=== PATIENT | male | born 1960 | race Two or more races ===

== ENCOUNTER 2018-11-23 08:52 | Inpatient (IN) | payer MEDICAID ==
[~2018-11-23] VITALS: Ht 170.2 cm; Wt 65.4 kg
[2018-11-23 09:04] VITALS: Ht 170.2 cm; Wt 65.4 kg
--- NOTE | 2018-11-23 09:47 | NUR ---
PT C/O ACHING CHEST PAIN WITH TINGLING TO BLE SINCE 729 THIS AM PT HX DM PT DENIES LOC AND/OR DIZZINESS PT DENIES N/V AT THIS TIME PT AAOX4 RESPS E/U LUNGS CTA SKIN PINK DRY AND WARM PT PLACED ON FULL CM NSR PT C/O PAIN 12/06 FRIEND AT BEDSIDE
[2018-11-23 09:51] LABS: BASOPHIL % 0.4 % (0-2); PLATELET COUNT 162 x10^3mcL (130-400); RED CELL DISTRIBUTION WIDTH 13.2 % (11.5-14.5)
[2018-11-23 10:00] LABS: CALCIUM 9.2 mg/dL (8.5-10.1); CARBON DIOXIDE 28.6 mmol/L (21-32); CHLORIDE SERUM 102 mmol/L (98-107); CREATININE SERUM 0.9 mg/dL (0.7-1.3); GFR1 > 60 mL/min; GLUCOSE SERUM 190 mg/dL (74-106); POTASSIUM SERUM 3.8 mmol/L (3.5-5.1); SODIUM SERUM 139 mmol/L (136-145)
--- NOTE | 2018-11-23 10:03 | NUR ---
PT IN POSITION OF COMFORT RESPS E/U FRIEND AT BEDSIDE WILL CONTINUE TO MONITOR
--- NOTE | 2018-11-23 10:08 | NUR ---
MD PENNY MADE AWARE OF PT SBP. PT MEDICATED PER MD ORDER
[2018-11-23 10:09] LABS: ALKALINE PHOSPHATASE 67 U/L (46-116); ALT/SGPT 25 U/L (16-63); AST/SGOT 19 U/L (15-37); CHOLESTEROL 167 mg/dL (<200); HDL CHOLESTEROL 55 mg/dL (40-60); LIPASE 338 IU/L (73-393); TRIGLYCERIDES 61 mg/dL (<150)
[2018-11-23 10:09] LABS: UA SPECIFIC GRAVITY <=1.005 (1.005-1.035); microscopic required? YES; urine erythrocyte TRACE (NEGATIVE)
[2018-11-23 10:16] LABS: FREE T4 1.16 ng/dL (0.76-1.46); FREE THYROXINE INDEX 3.3 ug/dL (1.4-4.5); T4(THYROXINE) 10.4 ug/dL (4.7-13.3)
[2018-11-23 10:27] LABS: T3 TOTAL 0.94 ng/mL
--- NOTE | 2018-11-23 11:04 | NUR ---
PT WAS AMBULATORY WITH STEADY GAIT TO RESTROOM
--- NOTE | 2018-11-23 11:06 | NUR ---
PT IN POSITION OF COMFORT RESPS E/U FRIEND AT BEDSIDE WILL CONTINUE TO MONITOR
[2018-11-23] MEDS ORDERED: METFORMIN HYDR500 M1 PO (11:13)
--- NOTE | 2018-11-23 11:31 | NUR ---
PT UP AMBULATING TO RESTROOM
--- NOTE | 2018-11-23 11:54 | NUR ---
FAMILY AT BEDSIDE. PT IN POSITION OF COMFORT RESPS E/U CALL LIGHT WITHIN REACH
[2018-11-23 11:59] LABS: MAGNESIUM 1.9 mg/dL (1.8-2.4); PHOSPHOROUS 3.3 mg/dL (2.5-4.9)
--- NOTE | 2018-11-23 13:25 | NUR ---
PT IN POSITION OF COMFORT LAUGHING WITH FAMILY AT BEDSIDE RESPS E/U
[2018-11-23 13:41] LABS: AMPHETAMINE QUAL UR NONE DETECTED (See below)
--- NOTE | 2018-11-23 15:01 | NUR ---
PT PROVIDED WARM BLANKET FOR COMFORT PT IN POSITION OF COMFORT TALKING WITH FAMILY RESPS E/U
--- NOTE | 2018-11-23 16:02 | NUR ---
PT IN POSITION OF COMFORT WITH FAMILY AT BEDSIDE RESPS E/U IN NO ACUTE DISTRESS AT THIS TIME VSS
--- NOTE | 2018-11-23 16:14 | NUR ---
PT IN POSITION OFF COMFORT WITH LIGHTS OFF PER PT REQUEST AND COMFORT RESPS E/U SPOUSE AT BEDSIDE WILL CONTINUE TO MONITOR
--- NOTE | 2018-11-23 17:15 | NUR ---
SANDWICH AND MEAL PROVIDED FOR PT
--- NOTE | 2018-11-23 18:39 | NUR ---
PT WAS ORIGINALLY GIVEN A BED OF 209. CALLED TO GIVE REPORT AND THAT WING CLOSED AT THIS TIME. SPOKE WITH KAILYN TOVAR AND WILL BE REASSIGNING PT TO A NEW BED
[2018-11-23 19:44] VITALS: BP 181/90
--- NOTE | 2018-11-23 19:49 | NUR ---
RECEIVED PT FROM ED VIA STEPHANIE. ORIENTED PT TO ROOM AND SURROUNDINGS. IV NOTED TO RAC PATENT AND INTACT. TELE 28 PLACED ON PT READING SR WITH PVC AND BBB .INSTRUCTED PT ON THE USE OF CALL LIGHT FOR ASSISTANCE. ENDORSED PT TO PRIMARY NURSE EVIN
[2018-11-23 21:45] VITALS: BP 153/88
--- NOTE | 2018-11-23 23:35 | NUR ---
THE BLOOD PRESSURE WAS BETTER AT AROUND 2145PM RECHECKED AND WAS BP-153/88 MAP-110. HR-80. LOPRESSOR PO WAS ADMINISTERED. STARTED IV NS AT 100 ML PER HOUR ORDERED. WILL MONITOR.
--- NOTE | 2018-11-24 05:11 | NUR ---
PT IS RESTING RIGHT NOW. DENIES ANY CHEST PAIN. STILL HAS IV NS AT 100 ML PER HOUR INFUSING WELL. WILL MONITOR BP. MADE COMFORTABLE IN BED.
[2018-11-24 05:49] VITALS: BP 155/78
--- NOTE | 2018-11-24 07:30 | NUR ---
PT IS ALERT AND ORIENTED X 4. PLEASANT AND COOPERATIVE. LUNGS CLEAR ON AUSCULTATIONS BILATERALLY. ROOM AIR. DENIES ANY CHEST PAIN THE WHOLE NIGHT. BOWEL SOUNDS ACTIVE AND PRESENT. NO DISTENTION NOTED. PT REFUSED INSULIN COVERAGE OF HIS BLOOD SUGAR THIS MORNING 152, BECAUSE HE IS NOT USE TO INSULIN COVERAGE. HE IS ONLY TAKING METFORMIN TO CONTROL BLOOD SUGAR AT HOME. AND PT IS AFRAID THAT HE WILL NOT GO TO HYPOGLYCEMIA. WILL CONTINUE TO MONITOR. .
[2018-11-24 07:35] LABS: CALCIUM 8.6 mg/dL (8.5-10.1); CARBON DIOXIDE 25.9 mmol/L (21-32); CHLORIDE SERUM 105 mmol/L (98-107); CREATININE SERUM 0.9 mg/dL (0.7-1.3); GFR1 > 60 mL/min; GLUCOSE SERUM 151 mg/dL (74-106); PHOSPHOROUS 2.9 mg/dL (2.5-4.9); POTASSIUM SERUM 4.1 mmol/L (3.5-5.1); SODIUM SERUM 140 mmol/L (136-145)
[2018-11-24 07:37] LABS: BASOPHIL % 0.4 % (0-2); PLATELET COUNT 171 x10^3mcL (130-400); RED CELL DISTRIBUTION WIDTH 13.1 % (11.5-14.5)
--- NOTE | 2018-11-24 09:38 | NUR ---
ADMINISTERED ZESTRIL PO FOR ELEVATED BP. PT AND FAMILY WISH TO GO HOME TODAY BECAUSE THEY HAVE TO ATTEND THEIR [facility]ILY [facility] IN [place] TOMORROW. PT STATED HE DOES NOT HAVE ANY BP PROBLEM.
[2018-11-24 10:48] VITALS: BP 162/84
--- NOTE | 2018-11-24 11:49 | NUR ---
TALK TO DR. MCKEON PT WILL BE DC TODAY WITH BLOOD PRESSURE MEDICATION AT HOME. WAITING FOR DC ORDERS.
[2018-11-24] MEDS ORDERED: ZES10 PO (11:56)
[2018-11-24 12:58] VITALS: BP 162/84
--- NOTE | 2018-11-24 13:37 | NUR ---
GAVE REPORT TO AMNA CAMPBELL WHO WILL RESUME CARE OF PT. WAITING FOR DOCTORS JAEL CLARK TO COMPLETE DISCHAGE ORDER.
--- NOTE | 2018-11-24 14:05 | NUR ---
PT DISCHARGE FROM FACILITY, AL DISCHARGE PAPER HAS BEEN INSTRUCT TO THE PT. ALL PAPER SIGNED. IV REMOVED FROM RIGHT AC. PT IS A/O X4, DENY ANY RESPIRATORY DISTRESS, DENY ANY PAIN OR DISCOMFORT PIOR TO DISCHARGE. TAKE PT DOWN TO CAR WITH WHEEL CHAIR.
== END 2018-11-24 13:59 | disposition home or self-care (01) | DRG 198 ==
LOC: ED 08:52 → DU 11:04
PROVIDERS: Specialist; ADMIT Internal Medicine
DX: I20.9 Angina pectoris, unspecified (principal); E11.65 Type 2 diabetes mellitus with hyperglycemia; I10 Essential (primary) hypertension; E78.5 Hyperlipidemia, unspecified; I45.10 Unspecified right bundle-branch block; Z68.31 Body mass index [BMI] 31.0-31.9, adult; Z79.84 Long term (current) use of oral hypoglycemic drugs
CPT/HCPCS: 82962; 83880; 84439; J0360; J7030; Q0092

== ENCOUNTER 2019-04-10 15:28 | Emergency (ER) | payer MEDICAID ==
[~2019-04-10] VITALS: Ht 167.6 cm; Wt 78.0 kg
[~2019-04-10 15:28] MED LIST: METFORMIN HYDR500 M1 PO; ZES10 PO
[2019-04-10 15:36] VITALS: Ht 167.6 cm; Wt 78.0 kg
[2019-04-10 17:07] LABS: BASOPHIL % 0.3 % (0-2); PLATELET COUNT 172 x10^3mcL (130-400); RED CELL DISTRIBUTION WIDTH 12.8 % (11.5-14.5)
[2019-04-10 17:15] LABS: CALCIUM 8.9 mg/dL (8.5-10.1); CARBON DIOXIDE 23.3 mmol/L (21-32); CHLORIDE SERUM 105 mmol/L (98-107); CREATININE SERUM 0.9 mg/dL (0.7-1.3); GFR1 > 60 mL/min; GLUCOSE SERUM 127 mg/dL (74-106); POTASSIUM SERUM 3.6 mmol/L (3.5-5.1); SODIUM SERUM 141 mmol/L (136-145)
[2019-04-10 17:20] LABS: ALBUMIN 3.7 g/dL (3.4-5.0); ALKALINE PHOSPHATASE 55 U/L (46-116); ALT/SGPT 22 U/L (16-63); AST/SGOT 17 U/L (15-37); BILIRUBIN TOTAL 0.9 mg/dL (0.20-1.00); TOTAL PROTEIN, SERUM 7.5 g/dL (6.4-8.2)
[2019-04-10 18:08] LABS: UA SPECIFIC GRAVITY <=1.005 (1.005-1.035); microscopic required? YES; urine erythrocyte TRACE (NEGATIVE)
[2019-04-10 19:00] VITALS: BP 144/78
== END 2019-04-10 19:00 | disposition home or self-care (01) ==
LOC: ED 15:28
PROVIDERS: Emergency Medicine
DX: R00.2 Palpitations (principal); R53.1 Weakness; R06.02 Shortness of breath; F43.9 Reaction to severe stress, unspecified; I10 Essential (primary) hypertension; E11.9 Type 2 diabetes mellitus without complications
CPT/HCPCS: 36415; J7030; Q0092